=== PATIENT | male | born 1960 | race American Indian/Alaskan Native ===

== ENCOUNTER 2021-03-20 21:08 | Emergency (ER) | payer MEDICARE, MEDICAID, OTHER ==
[2021-03-20] MEDS ORDERED: Nitroglycerin/D5W 25 MG/250 ML BOTTLE IV SCH (21:45)
[2021-03-20] MEDS ORDERED: Tenecteplase 50 MG Kit ONE (21:52)
[2021-03-20 22:04] LABS: PTT,PARTIAL THROMBOPLSTIN TIME 24.8 SEC (23.2-32.3)
[2021-03-20] MEDS ORDERED: Heparin Sodium/0.45% NaCl 500 ML ONE (22:17)
[2021-03-20] MEDS ORDERED: Tenecteplase 50 MG Kit IV STA (22:27)
[2021-03-20] MEDS ORDERED: Heparin Sodium/0.45% NaCl 500 ML IV SCH (22:45)
[2021-03-20] MEDS ORDERED: Morphine 2 MG/ML SYRINGE IVPUSH ONE (22:53)
--- NOTE | 2021-03-20 23:04 | EDM.PDOC ---
ED HPI GENERAL MEDICAL PROBLEM - General Chief Complaint: Chest Pain Stated Complaint: chest pain Time Seen by Provider: 03/20/21 21:30 Source of Information: Reports: Patient, EMS, Family (), RN History Limitations: Reports: No Limitations - History of Present Illness INITIAL COMMENTS - FREE TEXT/NARRATIVE: Pt states that He developed pain in the midsternal chest. He has never had pain like this before. He states that it made him "a Little" short of breathe. No diaphoresis with it. ASA was given in the ambulance. Ntg SL was given in the ambulance times 2 and it did drop the pain from a 10 to 8. When he arrived here he continued to have midsternal chest pain and had some pain into his left arm. Ntg was repeated. EKG shows ST elevation in leads V1, V2, V3. Pt did request to go to [place]. Both hospitals are full and can not take the pt. [facility] was contacted and will take the pt. Onset: Sudden Onset Date: 03/20/21 Onset Time: 20:30 Location: Reports: Chest, Upper Extremity, Left Quality: Reports: Sharp Severity: Severe Associated Symptoms: Reports: Chest Pain Chest Pain Score (Numeric/FACES): 8 - Related Data Allergies Allergy/AdvReac Type Severity Reaction Status Date / Time hydrochlorothiazide Allergy Renal Verified 03/20/21 21:42 Failure lisinopril Allergy Renal Verified 03/20/21 21:42 Failure Sulfa (Sulfonamide Allergy Cannot Verified 03/20/21 21:42 Antibiotics) Remember Home Meds: Home Meds atorvaSTATin [Lipitor] 20 mg PO BEDTIME 08/18/13 [History] Albuterol Sulfate [Proair Hfa] 1 - 2 inh INH Q4HR PRN 10/05/18 [History] Esomeprazole Magnesium 40 mg PO DAILY 10/05/18 [History] Metoprolol Succinate 25 mg PO DAILY 10/05/18 [History] amLODIPine Besylate [Amlodipine Besylate] 10 mg PO DAILY 10/05/18 [History] Aspirin [Halfprin] 81 mg PO DAILY tab.ec 10/05/19 [Rx] Ondansetron [Zofran ODT] 4 mg PO Q6H PRN #5 tab.dis 10/05/19 [Rx] Past Medical History HEENT History: Reports: Impaired Vision Other HEENT History: "growth on neck that was removed that was negative" Cardiovascular History: Reports: High Cholesterol, Hypertension Respiratory History: Reports: COPD, Other (See Below) Other Respiratory History: "spots on my left lung that checked out ok" Gastrointestinal History: Reports: Chronic Constipation Genitourinary History: Reports: Acute Renal Failure, Chronic Renal Insuffiency, Other (See Below) Other Genitourinary History: hemorrhagic renal cysts Musculoskeletal History: Reports: Fracture, Other (See Below) Other Musculoskeletal History: "muscle breakdown after kidney infection and sepsis", ankle fracture Neurological History: Reports: Migraines, Other (See Below) Other Neuro History: Tourettes. Eyes hurt Psychiatric History: Reports: Panic Attack Endocrine/Metabolic History: Reports: Obesity/BMI 30+, Other (See Below) Other Endocrine/Metabolic History: "pre-diabetes" Hematologic History: Reports: None Immunologic History: Reports: None Oncologic (Cancer) History: Reports: None Dermatologic History: Reports: None - Infectious Disease History Infectious Disease History: Reports: MRSA - Past Surgical History Head Surgeries/Procedures: Reports: None HEENT Surgical History: Reports: None Cardiovascular Surgical History: Reports: None Respiratory Surgical History: Reports: None GI Surgical History: Reports: Appendectomy Male Surgical History: Reports: None Neurological Surgical History: Reports: None Musculoskeletal Surgical History: Reports: None Social & Family History - Family History Family Medical History: No Pertinent Family History - Tobacco Use Tobacco Use Status *Q: Former Tobacco User Used Tobacco, but Quit: Yes Month/Year Tobacco Last Used: 2019 - Caffeine Use Caffeine Use: Reports: None - Living Situation & Occupation Living situation: Reports: , with Family Occupation: Unemployed ED ROS GENERAL - Review of Systems Review Of Systems: See Below Constitutional: Denies: Fever, Chills HEENT: Reports: No Symptoms Respiratory: Reports: No Symptoms Cardiovascular: Reports: No Symptoms GI/Abdominal: Reports: No Symptoms : Reports: No Symptoms Musculoskeletal: Reports: No Symptoms Skin: Reports: No Symptoms Neurological: Reports: No Symptoms ED EXAM, GENERAL - Physical Exam Exam: See Below Exam Limited By: No Limitations General Appearance: Alert, WD/WN, Anxious, Moderate Distress Ears: Normal External Exam, Normal Canal, Normal TMs Nose: Normal Inspection Throat/Mouth: Normal Inspection, Normal Oropharynx Head: Atraumatic, Normocephalic Neck: Normal Inspection, Supple, Non-Tender, Full Range of Motion Respiratory/Chest: No Respiratory Distress, Lungs Clear, Normal Breath Sounds Cardiovascular: Regular Rate, Rhythm GI/Abdominal: Normal Bowel Sounds, Soft, Non-Tender Extremities: Normal Capillary Refill Neurological: Alert, Oriented Skin Exam: Warm, Dry #1 Interpretation EKG Date: 03/20/21 Time: 21:36 Rhythm: NSR P-Wave: Present QRS: Normal ST-T: Elevated Comparison: NA - No Prior EKG Course - Vital Signs Last Recorded V/S: Last Vital Signs Temp 98.6 F 03/20/21 21:55 Pulse 77 03/20/21 22:25 Resp 20 03/20/21 21:55 BP 153/86 H 03/20/21 22:25 Pulse Ox 98 03/20/21 22:25 - Orders/Labs/Meds Orders: Active Orders 24 hr Category Date Time Status Chest 1V Frontal [CR] Routine Exams 03/20/21 Taken Nitroglycerin/D5W [Nitroglycerin 25 MG/D5W 250 ML] Med 03/20/21 21:45 Active 25 mg in 250 ml IV TITRATE Medication Orders Nitroglycerin/Dextrose (Nitroglycerin 25 Mg/D5w 250 Ml) 25 mg in 250 mls @ 6 mls/hr IV TITRATE DEANNA; Protocol Last Admin: 03/20/21 21:52 Dose: 5 mcg/min, 3 mls/hr Documented by: LEDA Labs: Laboratory Tests 03/20/21 03/20/21 03/20/21 Range/Units 21:44 21:44 21:44 WBC 14.0 H (4.0-11.0) 10^3/uL RBC 5.04 (4.50-6.00) x10^6/uL Hgb 14.0 (14.0-18.0) g/dL Hct 41.7 L (42.0-52.0) % MCV 82.7 L (83.0-97.0) fL MCH 27.8 (27.0-32.0) pg MCHC 33.6 (32.0-36.0) g/dL RDW Coeff of Shelbie 14.7 (11.0-15.0) % Plt Count 316 (150-400) 10^3/uL Immature Gran % (Auto) 0.1 (0.0-4.9) % Neut % (Auto) 81.0 H (41-71) % Lymph % (Auto) 13.6 L (24-44) % [place] % (Auto) 5.0 (0-10) % Eos % (Auto) 0.1 (0-6) % Baso % (Auto) 0.2 (0-1) % Neut # (Auto) 11.33 H (1.80-8.00) x10^3/uL Lymph # (Auto) 1.90 (0.60-5.00) 10^3/uL [place] # (Auto) 0.70 (0.00-1.50) 10^3/uL Eos # (Auto) 0.01 (0.00-1.50) 10^3/uL Baso # (Auto) 0.03 (0.00-0.50) 10^3/uL Immature Gran # (Auto) 0.02 (0.00-0.49) 10^3/uL PT 10.4 (9.7-12.3) SEC INR 0.95 (0.92-1.18) APTT 24.8 (23.2-32.3) SEC Sodium 141 (136-145) mEq/L Potassium 3.6 (3.5-5.0) mEq/L Chloride 105 (98-106) mEq/L Carbon Dioxide 19 L (21-32) mmol/L BUN 18 (7-18) mg/dL Creatinine 1.5 H (0.7-1.3) mg/dL Est Cr Clr Drug Dosing 48.96 mL/min Estimated GFR (MDRD) 48 L (>=60) mL/min Glucose 159 H (75-99) mg/dL Calcium 8.4 (8.4-10.1) mg/dL Total Bilirubin 0.3 (0.0-1.0) mg/dL AST 31 (15-37) U/L ALT 44 (12-78) U/L Alkaline Phosphatase 139 H (46-116) U/L Lactate Dehydrogenase 188 (100-190) U/L Creatine Kinase 117 (35-232) U/L Troponin I High Sens 70.1 (<=76) pg/mL Total Protein 7.9 (6.4-8.2) g/dL Albumin 3.4 (3.4-5.0) g/dL Lipase 60 L (73-393) U/L SARS CoV-2 RNA Rapid NICHOLAS (NEGATIVE) 03/20/21 Range/Units 21:58 WBC (4.0-11.0) 10^3/uL RBC (4.50-6.00) x10^6/uL Hgb (14.0-18.0) g/dL Hct (42.0-52.0) % MCV (83.0-97.0) fL MCH (27.0-32.0) pg MCHC (32.0-36.0) g/dL RDW Coeff of Shelbie (11.0-15.0) % Plt Count (150-400) 10^3/uL Immature Gran % (Auto) (0.0-4.9) % Neut % (Auto) (41-71) % Lymph % (Auto) (24-44) % [place] % (Auto) (0-10) % Eos % (Auto) (0-6) % Baso % (Auto) (0-1) % Neut # (Auto) (1.80-8.00) x10^3/uL Lymph # (Auto) (0.60-5.00) 10^3/uL [place] # (Auto) (0.00-1.50) 10^3/uL Eos # (Auto) (0.00-1.50) 10^3/uL Baso # (Auto) (0.00-0.50) 10^3/uL Immature Gran # (Auto) (0.00-0.49) 10^3/uL PT (9.7-12.3) SEC INR (0.92-1.18) APTT (23.2-32.3) SEC Sodium (136-145) mEq/L Potassium (3.5-5.0) mEq/L Chloride (98-106) mEq/L Carbon Dioxide (21-32) mmol/L BUN (7-18) mg/dL Creatinine (0.7-1.3) mg/dL Est Cr Clr Drug Dosing mL/min Estimated GFR (MDRD) (>=60) mL/min Glucose (75-99) mg/dL Calcium (8.4-10.1) mg/dL Total Bilirubin (0.0-1.0) mg/dL AST (15-37) U/L ALT (12-78) U/L Alkaline Phosphatase (46-116) U/L Lactate Dehydrogenase (100-190) U/L Creatine Kinase (35-232) U/L Troponin I High Sens (<=76) pg/mL Total Protein (6.4-8.2) g/dL Albumin (3.4-5.0) g/dL Lipase (73-393) U/L SARS CoV-2 RNA Rapid NICHOLAS Negative (NEGATIVE) Meds: Medications Generic Name Dose Route Start Last Admin Trade Name Freq PRN Reason Stop Dose Admin Nitroglycerin/Dextrose 25 mg in 250 mls @ 6 mls/hr 03/20/21 21:45 03/20/21 21:52 Nitroglycerin 25 Mg/D5w 250 Ml IV 5 mcg/min TITRATE DEANNA 3 mls/hr Administration Protocol 10 MCG/MIN Discontinued Medications Generic Name Dose Route Start Last Admin Trade Name Freq PRN Reason Stop Dose Admin Heparin Sodium/Sodium Chloride Confirm 03/20/21 22:17 Heparin 25,000 Units In 1/2 Ns 500 Ml Administered 03/20/21 22:18 Dose 500 mls @ as directed .ROUTE .STK-MED ONE Tenecteplase Confirm 03/20/21 21:52 03/20/21 22:28 Tenecteplase 50 Mg Kit Administered 03/20/21 21:53 Not Given Dose 50 mg .ROUTE .STK-MED ONE Tenecteplase 50 mg 03/20/21 22:27 03/20/21 22:29 Tenecteplase 50 Mg Kit IV 03/20/21 22:28 50 mg STAT STA Administration Protocol - Re-Assessments/Exams Free Text/Narrative Re-Assessment/Exam: 03/20/[address] Granados and EKG was faxed to [place] for him to review. He did recommend TNKase. and heparin gtt but no heparin bolus. He is accepting pt in transfer flight reguested but not able to fly in due to weather. ALS ambulance requested and not available in [place]. They did contact [place] which did have ALS available. risks of transfer were discussed with pt and . to Include worsening of condition enroute, cardiac . Benefits of transfer include specialist of cardiology and higher level of care. Risks of not transfer would include worsening of condition without specialty care. Pt and family agree to transfer. 03/20/210- risks of TNKase discussed with pt and . consent reviewed with the pt and . They agree to the TNKase and will be administered. 03/20/21 23:30 Pt continues to have pain but it has improved to 6-7 down from the 10 on admission. BP is elevated and with continued pain NTG drip started. Morphine repeated. Zofran given for nausea and dry heaving. Departure - Departure Time of Disposition: 23:46 Disposition: DC/Tfer to Acute Hospital 02 Reason for Transfer *Q: Primary PCI Indicated Condition: Serious Clinical Impression: Acute myocardial infarction Qualifiers: Myocardial infarction type: ST elevation myocardial infarction Involved coronary artery: unspecified coronary artery Qualified Code(s): I21.3 - ST elevation (STEMI) myocardial infarction of unspecified site Additional Instructions: Transfer to [facility] per ALS ambulance. Flight is not able to fly in due to weather [place] is closest hospital as [facility] are full. Sepsis Event Note (ED) - Evaluation Sepsis Screening Result: No Definite Risk - Focused Exam Vital Signs: Vital Signs Temp Pulse Resp BP Pulse Ox 03/20/21 22:25 77 153/86 H 98 03/20/21 22:10 88 144/94 H 98 03/20/21 21:55 98.6 F 90 20 145/89 H 97 03/20/21 21:40 98.6 F 91 20 141/97 H 98 03/20/21 21:26 97.6 F 99 20 135/94 H 96 - Problem List & Annotations (1) Acute myocardial infarction SNOMED Code(s): 80706045 Code(s): I21.9 - ACUTE MYOCARDIAL INFARCTION, UNSPECIFIED Status: Acute Priority: High Current Visit: Yes Qualifiers: Myocardial infarction type: ST elevation myocardial infarction Involved coronary artery: unspecified coronary artery Qualified Code(s): I21.3 - ST elevation (STEMI) myocardial infarction of unspecified site - Problem List Review Problem List Initiated/Reviewed/Updated: Yes - My Orders Last 24 Hours: My Active Orders 03/20/21 Chest 1V Frontal [CR] Routine 03/20/21 21:45 Nitroglycerin/D5W [Nitroglycerin 25 MG/D5W 250 ML] 25 mg in 250 ml IV TITRATE - Assessment/Plan Last 24 Hours: My Active Orders 03/20/21 Chest 1V Frontal [CR] Routine 03/20/21 21:45 Nitroglycerin/D5W [Nitroglycerin 25 MG/D5W 250 ML] 25 mg in 250 ml IV TITRATE
[2021-03-20] MEDS: Ondansetron 4 MG/2 ML SDV IVPUSH STA (23:25)
[2021-03-20] MEDS: Ondansetron 4 MG/2 ML SDV IVPUSH PRN ×2 (23:25→23:59)
[2021-03-21 00:02] VITALS: BP 121/91; PULSE 97
== END 2021-03-21 ==
LOC: CC.ED 21:08
DX: I21.3 ST elevation (STEMI) myocardial infarction of unspecified site (principal); E78.00 Pure hypercholesterolemia, unspecified; N17.9 Acute kidney failure, unspecified; I12.9 Hypertensive chronic kidney disease with stage 1 through stage 4 chronic kidney disease, or unspecified chronic kidney disease; N18.9 Chronic kidney disease, unspecified; J44.9 Chronic obstructive pulmonary disease, unspecified; E66.9 Obesity, unspecified; Z68.30 Body mass index [BMI] 30.0-30.9, adult; Z88.2 Allergy status to sulfonamides; Z88.8 Allergy status to other drugs, medicaments and biological substances; Z79.82 Long term (current) use of aspirin; Z79.899 Other long term (current) drug therapy; Z87.891 Personal history of nicotine dependence; Z20.822 Contact with and (suspected) exposure to COVID-19
CPT/HCPCS: 36415; 37195; 71045; 80053; 82550; 83615; 83690; 84484; 85025; 85610; 85730; 93005; 96365; 96366; 96368; 96375; 96376; 99285-25; J1644; J2270; J2405; J3101; J3490; U0002